=== PATIENT | female | born 1980 | race Caucasian/White ===

== ENCOUNTER → 2017-07-29 | Emergency (ER) | payer OTHER ==
[~2017-07-29] VITALS: Ht 162.6 cm; Wt 59.0 kg
== END | disposition home or self-care (01) ==
LOC: ER 14:07
DX: R10.2 Pelvic and perineal pain (principal); M62.838 Other muscle spasm

== ENCOUNTER 2017-12-16 04:29 | Emergency (ER) | payer OTHER ==
[~2017-12-16] VITALS: Ht 165.1 cm; Wt 59.0 kg
[2017-12-16] MEDS ORDERED: KEPPRA750 MG (04:49)
[2017-12-16] MEDS ORDERED: DUI500 PO (07:45)
[2017-12-16] MEDS ORDERED: KETO10TA2 PO (07:45)
== END 2017-12-16 07:56 | disposition home or self-care (01) ==
LOC: ER 04:29
DX: S00.81XA Abrasion of other part of head, initial encounter (principal); S50.811A Abrasion of right forearm, initial encounter; T74.11XA Adult physical abuse, confirmed, initial encounter; Y07.01 Husband, perpetrator of maltreatment and neglect; Y08.89XA Assault by other specified means, initial encounter; Y92.098 Other place in other non-institutional residence as the place of occurrence of the external cause